=== PATIENT | female | born 1995 | race Hispanic/Latino ===

== ENCOUNTER → 2017-08-29 | Outpatient (CLI) | payer BC ==
--- NOTE | 2017-08-29 18:45 | Diagnostic Imaging Report ---
PROCEDURE:TRANSVAGINAL ULTRASOUND COMPARISON:None. INDICATIONS:MISPOSITIONED IUD TECHNIQUE: Grayscale transverse and sagittal transvaginal images were obtained of the pelvis. FINDINGS: UTERUS: 5.7 x 3.8 x 4.3 cm. No mass. ENDOMETRIUM: Intrauterine device in place. RIGHT OVARY: 3.2 x 2.3 x 3.2 cm. 2.3 x 1.5 x 2.6 cm cyst with septations. LEFT OVARY: 2.6 x 2 x 1.9 cm. There is trace free fluid within the pelvis. No adnexal masses. CONCLUSION: IUD in appropriate position. 2.6 cm right ovarian cyst, probably a hemorrhagic cyst. Dictated by: Ramos Perera M.D. on 08/29/2017 at 18:44 Electronically approved by: Ramos Perera M.D. on 08/29/2017 at 18:44
== END ==
LOC: US 17:52
PROVIDERS: ATTEND Family Medicine
DX: Z30.431 Encounter for routine checking of intrauterine contraceptive device (principal); N83.201 Unspecified ovarian cyst, right side
CPT/HCPCS: 76830

== ENCOUNTER → 2019-03-22 | Outpatient (CLI) | payer BC ==
--- NOTE | 2019-03-22 14:47 | Diagnostic Imaging Report ---
Thyroid ultrasound History: Enlarged thyroid Comparison: None Findings: The thyroid echotexture is heterogeneous. Vascularity is normal. The right lobe measures 5.6 x 2.1 x 2.5 cm. The left lobe measures 5.1 x 1.7 x 2.1 cm. The isthmus measures 0.4 cm. Nodules (measurements are AP, transverse, craniocaudal): Right Lobe: Heterogeneous thyroid tissue without focal nodule. Left Lobe: Heterogeneous thyroid tissue without focal nodule. Isthmus: No cystic mass or discrete solid nodule identified. Lymph Nodes: No cervical lymph nodes are identified. Parathyroids: Not visualized. IMPRESSION: Heterogeneous thyroid without focal nodules. ACR glossary of thyroid rads TI-RADS 1: No focal lesion. TI-RADS 2: Not suspicious. TI-RADS 3: Mildly suspicious (recommend FNA is greater than or equal to 2.5 cm; follow-up at 1, 3, and 5 years if greater than or equal to 1.5 cm) TI-RADS 4: Moderately Suspicious (recommend FNA is greater than or equal to 1.5 cm; follow-up at 1, 2, 3, and 5 years) TI-RADS 5: Highly suspicious (recommend FNA is greater than or equal to 10 mm) TI-RADS 6: Biopsy-proven malignancy Signed by: Adonis Acevedo MD on 03/22/2019 2:44 PM
== END ==
LOC: US 13:50
PROVIDERS: ATTEND Family Medicine
DX: E04.9 Nontoxic goiter, unspecified (principal)
CPT/HCPCS: 76536

== ENCOUNTER 2020-09-27 01:38 | Emergency (ER) | payer BC ==
[~2020-09-27] VITALS: Ht 162.6 cm; Wt 102.5 kg
[2020-09-27 01:56] LABS: BASOPHILS % 0.4 % (0.0-1.0); EOSINOPHILS # (AUTO) 0.1 (0.0-0.4); EOSINOPHILS % 0.7 % (0.0-6.0); HEMATOCRIT 41.9 % (34.2-44.1); HEMOGLOBIN 13.8 g/dL (12.0-16.0); LYMPHOCYTES # (AUTO) 2.5 (1.0-3.2); LYMPHOCYTES % 26.2 % (18.0-39.1); MEAN CORPUSCULAR HEMOGLOBIN 27.4 pg (28-32); MEAN CORPUSCULAR HGB CONC 32.9 g/dL (31-35); MEAN CORPUSCULAR VOLUME 83.3 fL (81-99); MONOCYTES # (AUTO) 0.7 (0.2-0.8); MONOCYTES % 7.2 % (4.4-11.3); NEUTROPHILS # (AUTO) 6.1 (2.1-6.9); NEUTROPHILS % 65.2 % (38.7-80.0); PLATELET COUNT 249 x10e3/uL (140-360); RED BLOOD COUNT 5.03 x10e6/uL (3.6-5.1); RED CELL DISTRIBUTION WIDTH 12.8 % (11.7-14.4)
[2020-09-27 01:57] LABS: CLARITY,URINE SL CLOUDY (CLEAR); COLOR,URINE YELLOW (YELLOW); KETONES,URINE NEGATIVE (NEGATIVE); LEUKOCYTE ESTERASE ,URINE NEGATIVE (NEGATIVE); NITRITE,URINE NEGATIVE (NEGATIVE); PROTEIN,URINE DIPSTICK >=300 (NEGATIVE); URINE UROBILINOGEN 0.2 mg/dL (0.2 - 1)
[2020-09-27 02:05] LABS: BACTERIA,URINE MODERATE /HPF; EPITHELIAL CELLS,URINE MANY /LPF; WBC,URINE (MAN) 0-5 /HPF (0-5)
[2020-09-27 02:16] LABS: ALANINE AMINOTRANSFERASE 14 IU/L (0-55); ALBUMIN 3.5 g/dL (3.5-5.0); ALKALINE PHOSPHATASE 64 IU/L (40-150); BLOOD UREA NITROGEN 15 mg/dL (7-26); BUN/CREATININE RATIO 21 (6-25); CALCIUM 8.4 mg/dL (8.4-10.2); CARBON DIOXIDE 21 mmol/L (22-29); CHLORIDE 109 mmol/L (98-107); CREATININE, SERUM 0.71 mg/dL (0.57-1.11); EST GLOMERULAR FILTRATION RATE > 60 ML/MIN (60-); GLUCOSE 118 mg/dL (74-118); SODIUM 140 mmol/L (136-145)
[2020-09-27] MEDS ORDERED: LIDOCAINE VISC 2% SOLN 15 ML UDC PO ONE (02:30)
[2020-09-27] MEDS ORDERED: DONNATAL/LIDOCAINE/MAALOX 30 ML SUSP PO ONE (02:30)
[2020-09-27] MEDS ORDERED: MAGNESIUM/ALUMINUM/SIMETHICONE 30 ML UDC PO ONE (02:30)
[2020-09-27] MEDS ORDERED: BELLADONNA ALK/PHENOBARBITAL 5 ML UDC PO ONE (02:30)
[2020-09-27] MEDS ORDERED: BELLADONNA ALK/PHENOBARBITAL 5 ML UDC ONE (02:32)
[2020-09-27] MEDS ORDERED: LIDOCAINE VISC 2% SOLN 15 ML UDC ONE (02:32)
[2020-09-27] MEDS ORDERED: MAGNESIUM/ALUMINUM/SIMETHICONE 30 ML UDC ONE (02:33)
[2020-09-27] MEDS ORDERED: SODIUM CHLORIDE 0.9% 50ML 50 ML ONE (02:41)
[2020-09-27] MEDS ORDERED: IOPAMIDOL 370 MG/ML 200 ML INFUS..BTL INJ ONE (02:42)
[2020-09-27 03:46] VITALS: BP 129/59
[2020-09-27] MEDS ORDERED: ZOFRAN4 MG SL (03:47)
[2020-09-27] MEDS ORDERED: PANTOPRAZOLE SO40 MG PO (03:47)
[2020-09-27] MEDS ORDERED: METHYLPREDNISOLONE SOD SUCC 125 MG/2ML VIAL IV ONE (04:00)
[2020-09-27] MEDS ORDERED: DIPHENHYDRAMINE HCL INJ 50 MG/ML VIAL IV ONE (04:00)
[2020-09-27] MEDS ORDERED: METHYLPREDNISOLONE SOD SUCC 125 MG/2ML VIAL ONE (04:02)
[2020-09-27] MEDS ORDERED: DIPHENHYDRAMINE HCL INJ 50 MG/ML VIAL ONE (04:03)
== END 2020-09-27 04:36 | disposition home or self-care (01) ==
LOC: ER 02:04
DX: R10.13 Epigastric pain (principal); R11.2 Nausea with vomiting, unspecified; K29.70 Gastritis, unspecified, without bleeding
CPT/HCPCS: 36415; 74177; 80053; 81001; 81025; 83690; 85025; 99284; J1200; J2930; Q9967

== ENCOUNTER 2020-11-06 10:33 | Emergency (ER) | payer BC ==
[~2020-11-06] VITALS: Ht 162.6 cm; Wt 102.5 kg
[~2020-11-06 10:33] MED LIST: PANTOPRAZOLE SO40 MG PO; ZOFRAN4 MG SL
[2020-11-06 10:55] LABS: BASOPHILS % 0.4 % (0.0-1.0); EOSINOPHILS # (AUTO) 0.1 (0.0-0.4); EOSINOPHILS % 0.9 % (0.0-6.0); HEMATOCRIT 39.7 % (34.2-44.1); HEMOGLOBIN 13.5 g/dL (12.0-16.0); LYMPHOCYTES # (AUTO) 2.3 (1.0-3.2); LYMPHOCYTES % 26.5 % (18.0-39.1); MEAN CORPUSCULAR HEMOGLOBIN 27.8 pg (28-32); MEAN CORPUSCULAR VOLUME 81.9 fL (81-99); MONOCYTES # (AUTO) 0.6 (0.2-0.8); MONOCYTES % 6.5 % (4.4-11.3); NEUTROPHILS # (AUTO) 5.6 (2.1-6.9); NEUTROPHILS % 65.3 % (38.7-80.0); PLATELET COUNT 266 x10e3/uL (140-360); RED BLOOD COUNT 4.85 x10e6/uL (3.6-5.1); RED CELL DISTRIBUTION WIDTH 13.2 % (11.7-14.4)
[2020-11-06 11:13] LABS: ALANINE AMINOTRANSFERASE 14 IU/L (0-55); ALBUMIN 3.9 g/dL (3.5-5.0); ALBUMIN/GLOBULIN RATIO 1.3 (0.8-2.0); ALKALINE PHOSPHATASE 57 IU/L (40-150); ANION GAP 11.7 mmol/L (8-16); BLOOD UREA NITROGEN 7 mg/dL (7-26); BUN/CREATININE RATIO 10 (6-25); CALCIUM 8.8 mg/dL (8.4-10.2); CARBON DIOXIDE 22 mmol/L (22-29); CHLORIDE 109 mmol/L (98-107); CREATININE, SERUM 0.68 mg/dL (0.57-1.11); EST GLOMERULAR FILTRATION RATE > 60 ML/MIN (60-); GLUCOSE 88 mg/dL (74-118); POTASSIUM 3.7 mmol/L (3.5-5.1); SODIUM 139 mmol/L (136-145)
[2020-11-06 14:23] VITALS: BP 129/78
== END 2020-11-06 14:24 | disposition home or self-care (01) ==
LOC: ER 11:19
DX: O20.0 Threatened abortion (principal)
CPT/HCPCS: 36415; 76801; 76817; 80053; 84702; 85025; 86900; 99284

== ENCOUNTER 2025-03-13 21:06 | Emergency (ER) | payer BC, OTHER ==
[~2025-03-13] VITALS: Ht 162.6 cm; Wt 102.5 kg
[2025-03-13 23:09] LABS: BASOPHILS % 0.4 % (0.0-1.0); EOSINOPHILS % 2.4 % (0.0-6.0); LYMPHOCYTES % 43.0 % (18.0-39.1); MONOCYTES % 6.7 % (4.4-11.3); NEUTROPHILS % 47.2 % (38.7-80.0); RED CELL DISTRIBUTION WIDTH 13.5 % (11.7-14.4)
[2025-03-13] MEDS: ONDANSETRON HCL INJ 2MG/ML 2ML 2 MG/ML VIAL IV STA (23:12)
[2025-03-13] MEDS: SODIUM CHLORIDE 0.9% 1000ML 1,000 ML IV STA (23:12)
[2025-03-13 23:24] LABS: EST GLOMERULAR FILTRATION RATE 122.0 ML/MIN (>=60)
[2025-03-13] MEDS: LIDOCAINE VISC 2% SOLN 15 ML UDC PO STA (23:28)
[2025-03-13] MEDS: MAGNESIUM/ALUMINUM/SIMETHICONE 30 ML UDC PO STA (23:28)
[2025-03-13] MEDS: BELLADONNA ALK/PHENOBARBITAL 5 ML UDC PO ONE (23:29)
[2025-03-14] MEDS ORDERED: PROTONIX40 MG PO (01:43)
[2025-03-14 01:55] VITALS: BP 100/71; PULSE 74; RESP 20; TEMP 98.4; O2SAT 100
== END 2025-03-14 01:55 | disposition home or self-care (01) ==
LOC: ER 21:20
DX: R10.13 Epigastric pain (principal); K29.70 Gastritis, unspecified, without bleeding; R11.0 Nausea; Z86.0100 Personal history of colon polyps, unspecified
CPT/HCPCS: 36415; 74176; 80053; 83690; 84702; 85025; 99284; J2405; J7030